=== PATIENT | female | born 1990 | race Caucasian/White ===

== ENCOUNTER 2017-04-08 10:38 | Emergency (ER) | payer SELFPAY ==
[~2017-04-08] VITALS: Ht 152.4 cm; Wt 74.8 kg
[2017-04-08 10:45] VITALS: BP 140/84
[2017-04-08] MEDS ORDERED: PRED50TA PO (11:06)
--- NOTE | 2017-04-08 11:06 | PHYS DOC ---
Past History Past Medical History: Anxiety Past Surgical History: Alcohol Use: Occasionally Drug Use: Marijuana Adult General Chief Complaint Chief Complaint: CHEST PAIN HPI HPI Patient is a 26 year old F who presents with cough and chest pain for the past week. Patient states her work sent her in here to be evaluated since she's been coughing and complaining of chest pain for the past week. Patient denies fevers. Patient states she does smoke. Patient has no cardiac history. Patient does not take any control. Patient complains of diarrhea. Patient denies abdominal pain. Patient has no other complaints. Review of Systems Review of Systems GEN: Denies fevers, chills, sweats HEENT: Denies blurred vision, sore throat CV: chest pain RESP: Cough GI: Diarrhea NEURO: Denies confusion, dizziness MSK: Denies weakness, joint pain/swelling Current Medications Current Medications Current Medications Medications (Trade) Dose Ordered Sig/Brittany Start Time Stop Time Status Last Admin Dose Admin Dexamethasone Sodium Phosphate (Decadron) 10 mg 1X ONCE 04/08/17 11:00 04/08/17 11:01 UNV Allergies Allergies Allergies Coded Allergies Type Severity Reaction Last Updated Verified Penicillins Allergy Unknown 04/08/17 Yes Physical Exam Physical Exam GEN.: No apparent distress. Alert and oriented. HEENT: Head is normocephalic, atraumatic NECK: Supple. LUNGS: CTAB. HEART: RRR, S1, S2 present. Peripheral pulses intact ABDOMEN: Soft, nontender. Positive bowel sounds. EXTREMITIES: Without any cyanosis. NEUROLOGIC: Normal speech, normal tone PSYCHIATRIC: Normal affect, normal mood. SKIN: No ulcerations Current Patient Data Vital Signs Vital Signs Date Time Temp Pulse Resp B/P (MAP) Pulse Ox O2 Delivery O2 Flow Rate FiO2 04/08/17 10:45 98.2 71 98 Room Air EKG EKG 1102: EKG shows normal sinus rhythm rate of 73 no STEMI [] Radiology/Procedures Radiology/Procedures Chest x-ray NAD [] Course & Med Decision Making Course & Med Decision Making Pertinent Labs and Imaging studies reviewed. (See chart for details) ED course: Patient was seen and examined upon arrival EKG and chest x-ray were ordered along with 10 mg of Decadron IM 1127: Patient was reevaluated and still coughing will order breathing treatments 1213: Patient states she is ready go home she would like to eat patient received breathing treatments in which she states she feels better however still has a cough MDM: After reviewing the chart, CC/HPI/PMH, physical exam, EKG, [radiological results ], I do not believe the patient has a severe bacterial infection warranting further workup and/or admission at this time. I do not believe the patient having acute MN, patient has a PERC score neg, and I have low suspicion for acute thoracic aortic dissection. I see no indication of a bacterial infection warranting antibiotics. Recommended patient follow-up with her PCP in one to 2 days. Patient is stable for discharge. Additional verbal discharge instructions were provided to the patient and that if symptoms get worse or any new symptoms arise that are worrisome to the patient she is to return to the emergency room immediately [] Dragon Disclaimer Dragon Disclaimer This chart was dictated in whole or in part using Voice Recognition software in a busy, high-work load, and often noisy Emergency Department environment. It may contain unintended and wholly unrecognized errors or omissions. Departure Departure: Impression: Primary Impression: Cough Additional Impression: Chest pain Disposition: 01 HOME, SELF-CARE Condition: IMPROVED Referrals: PCP,NO (PCP) Patient Instructions: Cough, Adult Additional Instructions: Please follow up with her family doctor next one to 2 days Scripts Prednisone (PREDNISONE) 50 Mg Tablet 50 MG PO DAILY for 5 Days, #5 TAB Prov: KAYLEE SINHA DO 04/08/17 Problem Qualifiers Additional Impression: Chest pain Chest pain type: unspecified Qualified Codes: R07.9 - Chest pain, unspecified KAYLEE SINHA DO Apr 08, 2017 11:06
--- NOTE | 2017-04-08 11:06 | EKG ---
[address] [address] Test Date: 2017-04-08 Test Time: 11:02:25 Pat Name: SELAM FRIAS Department: Room: Gender: F Staff Rn: : 1990 Requested By: KAYLEE SINHA Order Number: [id number] Reading MD: Measurements Intervals [place] Rate: 73 P: 6 KS: 134 QRS: 19 QRSD: 80 T: 23 QT: 372 QTc: 413 Interpretive Statements SINUS RHYTHM QRS(T) CONTOUR ABNORMALITY CONSIDER ANTEROSEPTAL MYOCARDIAL DAMAGE RI6.01 Unconfirmed report No previous ECG available for comparison
[2017-04-08] MEDS: DEXAMETHASONE SOD PHOS 10 MG/ML VIAL IM ONE (11:12)
--- NOTE | 2017-04-08 11:18 | RAD ---
Chest, 2 views, 04/08/2017: History: Chest pain and cough The heart size and pulmonary vascularity are normal. The lungs are clear. There is no evidence of pleural fluid. IMPRESSION: No acute cardiopulmonary abnormality is detected.
[2017-04-08] MEDS: IPRATRPIUM/ALBUTEROL 0.5/2.5MG 3 ML NEBU. NEB ONE (11:35)
== END 2017-04-08 12:30 | disposition home or self-care (01) ==
LOC: ER 10:38
DX: R07.9 Chest pain, unspecified (principal); R19.7 Diarrhea, unspecified; F41.9 Anxiety disorder, unspecified; F12.10 Cannabis abuse, uncomplicated; Z88.0 Allergy status to penicillin
CPT/HCPCS: 71020; 93005; 94640; 96372; 99284; J1100; J7620